=== PATIENT | male | born 1935 | race Caucasian/White ===

== ENCOUNTER 2017-09-12 06:32 | Day surgery (SDC) | payer MEDICARE, BC ==
[~2017-09-12] VITALS: Ht 190.5 cm; Wt 83.9 kg
--- NOTE | ~2017-09-12 | OP ---
PATIENT NAME: GABI HIRSCH MEDICAL RECORD: [id number] :35 LOCATION:D.OPS ADMISSION DATE: SURGEON: ALVAREZ RICHARDS MD DATE OF OPERATION: 09/12/2017 PREOPERATIVE DIAGNOSES: 1. Left inguinal hernia. 2. Umbilical hernia. 3. Chronic obstructive pulmonary disease. 4. Hypertension. 5. Coronary artery disease. POSTOPERATIVE DIAGNOSES: 1. Left inguinal hernia. 2. Umbilical hernia. 3. Chronic obstructive pulmonary disease. 4. Hypertension. 5. Coronary artery disease. PROCEDURES: 1. Left inguinal hernia repair with medium PHS mesh. 2. Umbilical hernia repair without mesh. SURGEON: Alvarez Richards MD REPORT OF PROCEDURE: The patient's abdomen and left groin were prepped and draped in sterile fashion. The left groin was approached first. An oblique incision was made above the inguinal ligament. Electrocautery was used to dissect through the subcutaneous tissue down to the external oblique fascia. This fascia was opened up to the external ring using electrocautery. The ilioinguinal nerve was found and high ligated. We elevated the spermatic cord and placed a Burg[place] around it. We eviscerated the patient's testicle and there was noted to be a hydrocele present. This hydrocele was opened up with return of clear fluid. The hydrocele sac was then excised using electrocautery. The testicle itself appeared to be normal with no masses or lesions. The patient had a large cord lipoma. This was dissected free and high ligated with a 3-0 silk tie. The patient did have a small indirect hernia sac. This was dissected free and dunked back down into the peritoneal cavity. The preperitoneal space of Retzius was opened up and a medium PHS mesh was inserted. This was sutured down on all 4 sides using interrupted 0 Vicryls. We then irrigated out the wound and assured there was no sign of any bleeding. The external oblique fascia was then closed with running 2-0 Vicryl, Henry's was then closed with interrupted 3-0 Vicryls and the skin was closed with running subcutaneous 5-0 Monocryl. A total of 7 mL of 0.25% Marcaine plain was infused into the surrounding tissues. We then approached the umbilical hernia. A semicircular incision was made on the inferior aspect of the umbilicus. Electrocautery was used to dissect through the hernia sac and we elevated the umbilicus. The hernia sac was dissected down to the fascial edges. The hernia defect was about a centimeter in greatest diameter. We freed up the undersurface of the fascia on all sides. We then reapproximated the fascia transversely using interrupted 0 Prolenes times 4. The umbilicus was then tacked down using an interrupted 3-0 Vicryl and the subcutaneous tissues were reapproximated with interrupted 3-0 Vicryl. The skin was closed with running subcutaneous 5-0 Monocryl and then infused with 7 mL of 0.25% Marcaine plain. The wounds were then dressed appropriately. OPERATIVE REPORT [id number] GABI HIRSCH COMPLICATIONS: None. CONDITION: Stable. ANESTHESIA: General endotracheal and local. BLOOD LOSS: Minimal. TRANSINT:[id number] Voice Confirmation ID: [id number] DOCUMENT ID: [id number] ALVAREZ RICHARDS MD at 0956 CC: ANITA GLASS MD and WILL DUVAL MD [id number] DICTATION DATE: 09/12/17922 SUPERVISOR CHANNEL PROCESS: 09/12/17 1209 [facility] [place] 09/12/17 [facility] [address] [place] [address]
[~2017-09-12 06:32] MED LIST: ASPIRIN EC325 M1 PO; BREO ELLIPTA 21 EACH; DYAZIDE 37.5/251 CAP PO; FLOMAX0.4 MG PO; IPRAT-ALBUT 0.5-3 ML UPD; LIPITOR10 MG PO; NEXIUM40 MG PO; NORVASC10 MG PO; TOPROL XL50 MG PO; VENTOLIN HFA18 GM INH
[2017-09-12 07:11] VITALS: BP 143/82; Ht 190.5 cm; Wt 83.9 kg
[2017-09-12 07:11] LABS: BASOPHILS 0.1 % (0-2); EOSINOPHILS 1.7 % (0-7); HEMATOCRIT 44.3 % (42.0-54.0); HEMOGLOBIN 14.8 g/dL (13.5-17.5); IMMATURE GRANULOCYTES 0.8 % (0-5); LYMPHOCYTES 11.7 % (15-50); MCH 30.8 pg (26.0-34.0); MCHC 33.4 g/dL (31.0-37.0); MCV 92.1 fL (80.0-100.0); MEAN PLATELET VOLUME 8.8 fL (7.4-10.4); MONOCYTES 8.9 % (2-11); NEUTROPHILS 76.8 % (40-80); PLATELET COUNT 266 10x3/uL (130-400); RBC 4.81 10x6/uL (4.20-6.10); RDW 12.9 % (11.5-14.5); WBC 10.7 10x3/uL (4.8-10.8)
[2017-09-12 07:20] LABS: ANION GAP 13.9 mmol/L (8-16); CALCIUM 9.3 mg/dL (8.5-10.1); CARBON DIOXIDE 28.5 mmol/L (21.0-32.0); CREATININE - SERUM 1.3 mg/dL (0.6-1.3); POTASSIUM - SERUM 3.4 mmol/L (3.5-5.1)
[2017-09-12] MEDS ORDERED: HYDROCODONE-APA1 TAB PO (09:17)
== END 2017-09-12 11:20 | disposition home or self-care (01) ==
LOC: D.OPS 06:32 → D.PAN 11:30 → D.OPS 13:30 → D.PAN 13:30
PROVIDERS: Surgery
DX: K40.90 Unilateral inguinal hernia, without obstruction or gangrene, not specified as recurrent (principal); K42.9 Umbilical hernia without obstruction or gangrene; J44.9 Chronic obstructive pulmonary disease, unspecified; I10 Essential (primary) hypertension; I25.10 Atherosclerotic heart disease of native coronary artery without angina pectoris; K21.9 Gastro-esophageal reflux disease without esophagitis; Z87.891 Personal history of nicotine dependence; Z01.812 Encounter for preprocedural laboratory examination

== ENCOUNTER → 2018-07-11 16:43 | Outpatient (CLI) | payer MEDICARE, BC ==
[2017-09-12 07:11] VITALS: BMI 23.1
[~2018-07-11 16:43] MED LIST changes: +HYDROCODONE-APA1 TAB PO
== END | disposition home or self-care (01) ==
LOC: D.LABREF 16:43
DX: L03.031 Cellulitis of right toe (principal)

== ENCOUNTER → 2018-09-22 12:19 | Outpatient (CLI) | payer MEDICARE, BC ==
[2017-09-12 07:11] VITALS: BMI 23.1
== END | disposition home or self-care (01) ==
LOC: D.RAD 12:19
DX: J44.1 Chronic obstructive pulmonary disease with (acute) exacerbation (principal)

== ENCOUNTER → 2018-12-08 19:11 | Outpatient (CLI) | payer MEDICARE, BC ==
[2017-09-12 07:11] VITALS: BMI 23.1
== END | disposition home or self-care (01) ==
LOC: D.LABREF 19:11
PROVIDERS: ATTEND Podiatrist Foot & Ankle Surgery
DX: L02.611 Cutaneous abscess of right foot (principal); L03.115 Cellulitis of right lower limb

== ENCOUNTER → 2019-07-23 10:17 | Outpatient (CLI) | payer MEDICARE, BC ==
[2017-09-12 07:11] VITALS: BMI 23.1
--- NOTE | 2019-07-24 12:01 | EC ---
PATIENT:GABI HIRSCH DATE OF SERVICE: 07/23/19 SEX: M MEDICAL RECORD: [id number] DATE OF : 35 LOCATION:D.[facility] AGE OF PATIENT: 84 ADMISSION DATE: 07/23/19 REFERRING PHYSICIAN: INTERPRETING PHYSICIAN: WILL DUVAL MD ECHOCARDIOGRAM REPORT ECHO CHARGES 4 ECHO COMPLETE Date: 07/23/19 CLINICAL DIAGNOSIS: PAC'S H/O CAD/HTN ECHOCARDIOGRAPHIC MEASUREMENTS (adult normal given) AC root (d.<3.7cm) 3.9 cm LV Septum d (<1.2 cm> 1.0 cm Valve Excursion 1.9 cm LV Septum (systole) 1.3 cm Left Atria (s.<4.0cm> 4.6 cm LVPW d(<1.2cm) 1.1 cm RV (d.<2.3cm) 2.9 cm LVPW (sytole) 1.7 cm LV diastole(<5.6CM) 5.2 cm MV E-F(>70mm/sec) cm LV systole 3.7 cm LVOT Diameter 1.9 cm MV exc.(>10mm) cm Est.ejection fraction (50-75%) % DOPPLER: LVIT cm/sec A 138 cm/sec E 82.0 cm/sec LA cm/sec RVSP 18.0 mmHg LVOT 90.0 cm/sec AOP1/2T m/s Asc. Ao 139 cm/sec RVOT 56.0 cm/sec RA cm/sec PA 87.0 cm/sec AV Gradient Peak 7.7 mmHg AV Mean 3.8 mmHg AV Area 1.9 cm MV Gradient Peak 9.0 mmHg MV Mean 2.4 mmHg MV Area cm COMMENTS: OP - HC Electronics Teacher: 1 CRISTOBAL JANELLE Airline Reservation Agent: 3 Dr. Shetty TAPE# PACS Pericardial Effusion N DATE OF SERVICE: Adequate 2D, color-flow and spectral Doppler, and M-mode. No LVH. LV internal dimensions are normal. Wall motion is normal. EF is greater than or equal to 55%. Aortic valve is tricuspid. No evidence of stenosis by Doppler interrogation. Left atrium is dilated at 4.6 cm. Mitral valve shows no prolapse. Trace MR. Right-sided chambers are grossly normal. Trace TR. ECHOCARDIOGRAM REPORT [id number] GABI HIRSCH TRANSINT:[id number] Voice Confirmation ID: [id number] DOCUMENT ID: [id number] WILL DUVAL MD at 1201 CC: [id number] DICTATION DATE: 07/23/191617 CLINICAL MANAGER: 07/23/191934 DEP CLI 07/23/19 [place] [id number] [place] [id number]
== END | disposition home or self-care (01) ==
LOC: D.HCCECHO 10:17
PROVIDERS: ATTEND Internal Medicine Interventional Cardiology
DX: I10 Essential (primary) hypertension (principal)